=== PATIENT | male | born 1955 | race Hispanic/Latino ===

== ENCOUNTER 2017-09-21 10:25 | Emergency (ER) | payer OTHER ==
--- NOTE | 2017-09-21 14:13 | XRay Report ---
Left hand: Trauma, laceration. AP and an obliqued lateral projection demonstrates bandaging over the lateral MP joint and proximal fifth digit obscuring detail of the underlying tissues. There is no foreign body and no obvious bone injury identified. The remainder of the hand is grossly unremarkable except for narrowing of the third MP joint. Impression: Lateral hand soft tissue injury.
--- NOTE | 2017-09-21 15:01 | XRay Report ---
LEFT RIBS: Trauma, pain. Routine views of the rib cage demonstrate normal mineralization with no significant contour abnormalities, fractures or destructive lesions. PA view of the chest demonstrates no underlying cardiopulmonary abnormalities, fluid or pneumothorax. IMPRESSION: Normal left rib series.
[2017-09-21] MEDS ORDERED: TYLENOL PO ONE (17:59)
[2017-09-21] MEDS ORDERED: XYLOCAINE 1% 20 mL INFILTRATI ONE (18:00)
[2017-09-21] MEDS ORDERED: NAPROSYN PO ONE (19:00)
[2017-09-21] MEDS ORDERED: BOOSTRIX IM ONE (19:07)
--- NOTE | 2017-09-21 19:10 | Emergency Department Report ---
ED General Adult HPI - General Chief complaint: Fall Stated complaint: CUT L HAND Time Seen by Provider: 09/21/17 17:51 Source: patient Mode of arrival: Ambulatory Limitations: No Limitations - History of Present Illness Initial comments: Pt is a 61 y M pmhx of HTN and COPD who presents s/p ground level fall. Pt is a right handed male who while at work had a ground level fall he fell onto his left side and caught his left hand on some equipment. He states that the pain is a 10/10 moving his hand makes the pain worse and nothing makes the pain better. The pain is an achy type of pain that radiates throughout his fingers. He denies having any LOC. He works as a waste field management. Severity scale (0 -10): 9 - Related Data Previous Rx's Medication Instructions Recorded Last Taken Type HYDROcodone/APAP 5-325 [Leland 1 each PO Q6HR PRN #7 tablet 09/21/17 Unknown Rx 5/325] Naproxen 250 mg PO BID #20 tablet 09/21/17 Unknown Rx Sulfamethoxazole/Trimethoprim 1 each PO BID #14 tablet 09/21/17 Unknown Rx [Bactrim DS TAB] Allergies Allergy/AdvReac Type Severity Reaction Status Date / Time No Known Allergies Allergy Unverified 09/21/17 12:54 ED Review of Systems ROS: Stated complaint: CUT L HAND Other details as noted in HPI Constitutional: denies: chills, fever Eyes: denies: eye pain, eye discharge, vision change ENT: denies: ear pain, throat pain Respiratory: denies: cough, shortness of breath, wheezing Cardiovascular: denies: chest pain, palpitations Endocrine: no symptoms reported Gastrointestinal: denies: abdominal pain, nausea, diarrhea Genitourinary: denies: urgency, dysuria Musculoskeletal: other (left handed ). denies: back pain, joint swelling, arthralgia Skin: denies: rash, lesions Neurological: denies: headache, weakness, paresthesias Psychiatric: denies: anxiety, depression Hematological/Lymphatic: denies: easy bleeding, easy bruising ED Past Medical Hx - Past Medical History Hx Hypertension: Yes Hx COPD: Yes - Surgical History Past Surgical History?: No - Social History Smoking Status: Current Every Day Smoker Substance Use Type: Alcohol - Medications Home Medications: Home Medications Medication Instructions Recorded Confirmed Last Taken Type HYDROcodone/APAP 5-325 [Leland 1 each PO Q6HR PRN #7 tablet 09/21/17 Unknown Rx 5/325] Naproxen 250 mg PO BID #20 tablet 09/21/17 Unknown Rx Sulfamethoxazole/Trimethoprim 1 each PO BID #14 tablet 09/21/17 Unknown Rx [Bactrim DS TAB] ED Physical Exam - General Limitations: No Limitations General appearance: alert, in no apparent distress - Head Head exam: Present: atraumatic, normocephalic - Eye Eye exam: Present: normal appearance - ENT ENT exam: Present: mucous membranes moist - Neck Neck exam: Present: normal inspection - Respiratory Respiratory exam: Present: chest wall tenderness (left chest wall tenderness ). Absent: respiratory distress - Cardiovascular Cardiovascular Exam: Present: regular rate, normal rhythm. Absent: systolic murmur, diastolic murmur, rubs, gallop - GI/Abdominal GI/Abdominal exam: Present: soft, normal bowel sounds - Rectal Rectal exam: Present: deferred - Extremities Exam Extremities exam: Present: normal inspection - Back Exam Back exam: Present: normal inspection - Neurological Exam Neurological exam: Present: alert, oriented X3 - Psychiatric Psychiatric exam: Present: normal affect, normal mood - Skin Skin exam: Present: warm, dry, intact, normal color. Absent: rash ED Course Vital Signs 09/21/17 12:54 Temperature 98.3 F Pulse Rate 75 Respiratory 20 Rate Blood Pressure 170/80 O2 Sat by Pulse 95 Oximetry - Laceration /Wound Repair Left Lateral Dorsal Hand Wound Location: upper extremity Wound Length (cm): 7 Wound's Depth, Shape: irregular, flap Wound Explored: no foreign body removed Irrigated w/ Saline (ccs): 2,000 Betadine Prep?: No Anesthesia: 1% Lidocaine Volume Anesthetic (ccs): 15 Wound Repaired With: sutures Suture Size/Type: 3:0 Number of Sutures: 12 Deep Layer Suture Size/Type: 3:0 Sterile Dressing Applied?: Yes ED Medical Decision Making - Radiology Data Radiology results: report reviewed, image reviewed Xray left rib: shows no acute osseous injury xray left hand: shows no acute osseous injury - Medical Decision Making Cdx: hand flap laceration ddx: leilani fracture, rib fracture I wll get xrays of hand oral pain medication and xrays of rib and I will suture laceration. Pt has had hand sutured I will give pt f/u with plastic surgeon. Discussed plan with patient patient agrees with plan and additional verbal discharge instructions were given. Critical care attestation.: If time is entered above; I have spent that time in minutes in the direct care of this critically ill patient, excluding procedure time. ED Disposition Clinical Impression: Rib pain on left side Hand laceration Qualifiers: Encounter type: initial encounter Foreign body presence: without foreign body Laterality: left Qualified Code(s): S61.412A - Laceration without foreign body of left hand, initial encounter Fall Qualifiers: Encounter type: initial encounter Qualified Code(s): W19.XXXA - Unspecified fall, initial encounter Disposition: TO HOME OR SELFCARE Is pt being admited?: No Does the pt Need Aspirin: No Condition: Stable Instructions: Finger Laceration (ED), Skin Adhesive Care (ED), Absorbable Suture Care (ED) Prescriptions: HYDROcodone/APAP 5-325 [Leland 5/325] 1 each PO Q6HR PRN #7 tablet PRN Reason: Pain Naproxen 250 mg PO BID #20 tablet Sulfamethoxazole/Trimethoprim [Bactrim DS TAB] 1 each PO BID #14 tablet Referrals: ED SUAREZ MD [Staff Physician] - 3-5 Days VIRAL YOUNGER MD [Staff Physician] - 3-5 Days
[2017-09-21] MEDS ORDERED: PERCOCET 5/325 PO ONE (19:14)
[2017-09-21 20:52] VITALS: BP 142/91
== END 2017-09-21 20:51 | disposition home or self-care (01) ==
LOC: ED 10:25
DX: S61.412A Laceration without foreign body of left hand, initial encounter (principal); R07.81 Pleurodynia; I10 Essential (primary) hypertension; J44.9 Chronic obstructive pulmonary disease, unspecified; F17.200 Nicotine dependence, unspecified, uncomplicated; W18.09XA Striking against other object with subsequent fall, initial encounter; Y93.89 Activity, other specified; Y92.89 Other specified places as the place of occurrence of the external cause; Y99.8 Other external cause status
CPT/HCPCS: 90471; 90715